=== PATIENT | female | born 1940 | race Caucasian/White ===

== ENCOUNTER 2016-11-04 11:13 | Observation (INO) | payer OTHER, MEDICARE ==
[~2016-11-04] VITALS: Ht 162.6 cm; Wt 82.9 kg
[2016-11-04 12:24] LABS: HEMATOCRIT 43.7 % (36.0-46.0); MCH 32.3 PG (29.0-34.0); MCHC 34.3 G/DL (30.0-36.0); MCV 94.2 FL (83-99); MEAN PLAT.VOLUME 9.5 uM^3 (9.5-12.4); PLATELET COUNT 255 K/uL (156-360); RBC DIS.WIDTH-CV 11.9 % (11.8-14.6); RBC DIS.WIDTH-SD 41.9 % (39-53); RED BLOOD COUNT 4.64 M/uL (3.80-5.20); WHITE BLOOD COUNT 5.8 K/uL (4.1-10.2)
[2016-11-04 12:31] LABS: CHLORIDE 105 mEq/L (99-109); POTASSIUM 4.6 mEq/L (3.7-5.4)
[2016-11-04 12:32] LABS: SODIUM 140 mEq/L (136-147)
[2016-11-04 12:33] LABS: GLUCOSE 81 mg/dL (70-99)
[2016-11-04 12:35] LABS: ANION GAP 8 MEQ/L (2-14)
[2016-11-04 12:37] LABS: GFR ESTIMATE (CALCULATED) > 59 mL/min/
[2016-11-04 12:38] LABS: UREA NITROGEN (BUN) 15 mg/dL (9-23)
[2016-11-04 12:44] LABS: TROP-I INTERPRETATION NEGATIVE; TROPONIN-I < 0.01 ng/mL (0.0-0.30)
[2016-11-04] MEDS ORDERED: TYLENOL ARTHRI650 MG PO (14:21)
[2016-11-04] MEDS ORDERED: LO-DOSE ASPIRIN81 M1 PO (14:21)
[2016-11-04] MEDS ORDERED: NEOMYC-POLYM-DEX5 ML RIGHT EYE (14:21)
[2016-11-04] MEDS ORDERED: VITAMIN B122500 MCG PO (14:22)
[2016-11-04] MEDS ORDERED: VITAMIN D22000 UNIT PO (14:22)
[2016-11-04] MEDS ORDERED: BIOFREEZE TP (14:23)
[2016-11-04] MEDS ORDERED: NIGHT TIME COL1 EACH PO (14:24)
[2016-11-04 16:15] VITALS: BP 145/70
[2016-11-04 17:07] LABS: D-DIMER ELISA < 150.00 ng/mLDDU (<230)
[2016-11-04 18:48] LABS: TROP-I INTERPRETATION NEGATIVE; TROPONIN-I 0.02 ng/mL (0.0-0.30)
[2016-11-04 20:00] VITALS: BP 141/67
[2016-11-05 00:30] VITALS: BP 111/59
[2016-11-05 01:17] LABS: TROP-I INTERPRETATION NEGATIVE; TROPONIN-I < 0.01 ng/mL (0.0-0.30)
[2016-11-05 04:22] VITALS: BP 139/67
[2016-11-05 07:48] VITALS: BP 132/64
[2016-11-05 12:16] VITALS: BP 123/59
[2016-11-05] MEDS ORDERED: ANTIVERT25 MG PO (13:45)
== END 2016-11-05 14:55 | disposition home or self-care (01) ==
LOC: EME 11:13 → EDOF 13:51 → 5WEST 13:51 → ENRESERV 14:01 → EDOF 14:05 → ENRESERV 14:36 → 5WEST 15:15
PROVIDERS: Internal Medicine; Physician Assistant
DX: R07.9 Chest pain, unspecified (principal); R42 Dizziness and giddiness; Z85.038 Personal history of other malignant neoplasm of large intestine; Z90.49 Acquired absence of other specified parts of digestive tract; Z90.710 Acquired absence of both cervix and uterus; Z88.2 Allergy status to sulfonamides; Z82.49 Family history of ischemic heart disease and other diseases of the circulatory system; Z82.5 Family history of asthma and other chronic lower respiratory diseases
CPT/HCPCS: 70450; 70551; 71010; 80048; 84484; 85027; 85379; 93005; 93306; 99281; 99285; G0378; J1650